=== PATIENT | female | born 1965 | race Caucasian/White ===

== ENCOUNTER → 2021-07-11 | Outpatient (CLI) | payer OTHER ==
--- NOTE | 2021-07-11 09:52 | REP ---
INDICATION: CKD III W/ HTN ? RENAL ARTERY STENOSIS COMPARISON: None None TECHNIQUE: Real time damian scale ultrasound examination using curved array transducer followed by color Doppler evaluation of the renal vasculature. FINDINGS: Right kidney measures 10.4 x 5.3 x 3.4 cm and demonstrates normal contour, size, echogenicity, and reniform shape. No hydronephrosis, nephrolithiasis, cystic or renal mass lesion. Left kidney measures 10.3 x 4.4 x 6.7 cm and demonstrates normal contour, size, echogenicity, and reniform shape. No hydronephrosis, nephrolithiasis, cystic or renal mass lesion. Incidental column of Cheng noted. Bladder appears normal. Color Doppler evaluation. Peak aortic velocity: 86.5 centimeters/second RIGHT KIDNEY Dual right renal arteries noted. Renal arterial velocity: 76.1 centimeters/second Renal-aortic ratio: 0.88 Intrarenal resistive indices: 0.52-0.65 Intrarenal acceleration times: 0.028-0.042 LEFT KIDNEY Renal arterial velocity: 120 centimeters/second Renal-aortic ratio: 1.39 Intrarenal resistive indices: 0.52-0.61 Intrarenal acceleration times: 0.031-0.047 IMPRESSION: 1. Kidneys appear normal. 2. Doppler interegation without sonographic evidence for renal arterial stenosis. <Electronically signed by Adan Bush > 07/11/21 0941
== END ==
LOC: M RAD 08:50
PROVIDERS: ATTEND Family Medicine
DX: N18.30 Chronic kidney disease, stage 3 unspecified (principal); I12.9 Hypertensive chronic kidney disease with stage 1 through stage 4 chronic kidney disease, or unspecified chronic kidney disease

== ENCOUNTER → 2021-08-28 | Outpatient (CLI) | payer OTHER ==
--- NOTE | 2021-08-28 10:02 | REPMRS ---
Patient History The patient states she has not had a clinical breast exam in over a year. Family history of breast cancer at age 70 in mother, prostate cancer at age 70 in father. Benign radio exam breast specimen of the left breast, April 09, 2014. Benign stereotatic loc for ea lesion of the left breast, April 09, 2014. Tomosynthesis is performed. Volpara breast density is c. Tyrer-Cuzick lifetime risk of breast cancer 14.0%. Patient states no breast complaints today. Patient has signed MRS History Sheet. Digital Woman Screen Mammo: August 28, 2021 - Exam #: [id number] Bilateral CC and MLO view(s) were taken. Technologist: Emily Sewell, Technologist Prior study comparison: April 11, 2020, bilateral digital mammo screening bilat, performed at [facility]. June 16, 2017, bilateral digital mammo screening bilat, performed at [facility]. FINDINGS: The breast tissue is heterogeneously dense. This may lower the sensitivity of mammography. There has been no change in the appearance of the mammogram from the prior studies. There is a moderate amount of residual fibroglandular tissue which is fairly symmetric. There is no interval development of dominant mass, areas of architectural distortion, or clustered microcalcification typical of malignancy. Assessment: BI-RADS/ACR category 1 mammogram. Negative Mammogram. Recommendation Routine screening mammogram in 1 year (for women over age 40). This mammogram was interpreted with the aid of an FDA-approved computer-aided dectection system. Electronically Signed By: Alexsander Estrada MD 08/28/21 [id number]
== END ==
LOC: M WHC 07:38
PROVIDERS: ATTEND Family Medicine
DX: Z12.31 Encounter for screening mammogram for malignant neoplasm of breast (principal); Z80.3 Family history of malignant neoplasm of breast; Z79.01 Long term (current) use of anticoagulants; N18.30 Chronic kidney disease, stage 3 unspecified; R73.03 Prediabetes

== ENCOUNTER → 2023-11-17 | Outpatient (CLI) | payer OTHER | LOC: M WHC 09:36 | PROVIDERS: ATTEND Internal Medicine | DX: R92.8 Other abnormal and inconclusive findings on diagnostic imaging of breast (principal); N63.22 Unspecified lump in the left breast, upper inner quadrant; N63.15 Unspecified lump in the right breast, overlapping quadrants | CPT/HCPCS: 76642; 77066; G0279 ==

== ENCOUNTER → 2023-12-02 | Outpatient (CLI) | payer OTHER ==
[2023-12-02 09:31] VITALS: TEMP 98.3
[2023-12-02 10:32] VITALS: BP 118/78; O2SAT 100
== END ==
LOC: M WHCPRO 09:25
PROVIDERS: ATTEND Internal Medicine
DX: R92.8 Other abnormal and inconclusive findings on diagnostic imaging of breast (principal); N63.13 Unspecified lump in the right breast, lower outer quadrant

== ENCOUNTER → 2024-04-17 | Outpatient (REF) | payer OTHER | LOC: M LAB REF 17:07 | PROVIDERS: ATTEND Internal Medicine Nephrology | DX: N39.0 Urinary tract infection, site not specified (principal) ==

== ENCOUNTER → 2024-06-23 | Outpatient (CLI) | payer OTHER | LOC: M WHC 09:46 | PROVIDERS: ATTEND Internal Medicine | DX: R92.8 Other abnormal and inconclusive findings on diagnostic imaging of breast (principal) ==

== ENCOUNTER → 2025-05-04 | Outpatient (CLI) | payer OTHER | LOC: M WHC 08:00 | PROVIDERS: ATTEND Nurse Practitioner Primary Care | DX: Z12.31 Encounter for screening mammogram for malignant neoplasm of breast (principal) ==